=== PATIENT | male | born 1960 | race African-American/Black ===

== ENCOUNTER 2017-02-19 19:16 | Inpatient (IN) | payer OTHER ==
[~2017-02-19] VITALS: Ht 172.7 cm; Wt 105.2 kg
[2017-02-19] MEDS ORDERED: SODIUM CHLORIDE 0.9% 1000ML 1,000 ML IV STA ×2 (19:53)
[2017-02-19] MEDS ORDERED: GLYB5TAB8 PO (20:00)
[2017-02-19] MEDS ORDERED: PRLSR20 PO (20:00)
[2017-02-19] MEDS ORDERED: GLC/500 PO (20:00)
[2017-02-19] MEDS ORDERED: FERRTAB PO (20:00)
[2017-02-19] MEDS ORDERED: ALLO100T PO (20:00)
[2017-02-19] MEDS ORDERED: LISI-725 PO (20:00)
[2017-02-19] MEDS ORDERED: CALC250T2 PO (20:00)
--- NOTE | 2017-02-19 20:23 | DIAGNOSTIC IMAGING REPORT ---
CHEST ONE VIEW PORTABLE CLINICAL HISTORY: Weakness. COMPARISON STUDY: No previous studies for comparison. FINDINGS: Lung volumes are normal. There is no pneumothorax or pleural effusion. Cardiac size is normal. Mediastinal contours are normal. There is no evidence of pulmonary edema. IMPRESSION: No acute cardiopulmonary findings. Electronically signed by: Dawson Ramirez M.D. 02/19/2017 8:22 PM Dictated Date/Time: 02/19/2017 8:21 PM
[2017-02-19 21:14] LABS: BASO % 0.3 %; BASO ABS # 0.04 K/uL (0-0.2); COMPLETE YES; EOS % 1.5 %; HEMATOCRIT 32.3 % (42-52); IG% 0.4 %; LYMPH % 26.4 %; LYMPH ABS # 4.21 K/uL (1.2-3.4); MEAN CELL VOLUME 77.1 fL (80-100); MEAN CORPUSCULAR HEMOGLOBIN 26.5 pg (25-34); MEAN CORPUSCULAR HGB CONC 34.4 g/dl (32-36); MEAN PLATELET VOLUME 8.6 fL (7.4-10.4); MONO % 5.1 %; NEUT % 66.3 %; PLATELET COUNT 461 K/uL (130-400); RED BLOOD COUNT 4.19 M/uL (4.7-6.1); WHITE BLOOD COUNT 15.95 K/uL (4.8-10.8)
[2017-02-19 21:30] LABS: URINE APPEARANCE CLOUDY (CLEAR); URINE COLOR DK YELLOW; URINE EPITHELIAL CELL AUTO >30 /lpf (0-5); URINE NITRITE POS (NEG); URINE SPECIFIC GRAVITY 1.027 (1.000-1.030); UROBILINOGEN NEG (NEG)
[2017-02-19 21:32] LABS: ALT/SGPT 26 U/L (12-78); BLOOD UREA NITROGEN 27 mg/dl (7-18); BUN/CREATININE RATIO 12.6 (10-20); CALCIUM 8.8 mg/dl (8.5-10.1); CARBON DIOXIDE 23 mmol/L (21-32); CHLORIDE 100 mmol/L (98-107); GLUCOSE 183 mg/dl (70-99); MAGNESIUM 1.1 mg/dl (1.8-2.4); SODIUM 134 mmol/L (136-145)
[2017-02-19 21:33] LABS: MANUAL MICROSCOPIC REQUIRED? NO; REVIEW REQ? YES; URINE BILIRUBIN NEG (NEG)
[2017-02-19 21:36] LABS: PARTIAL THROMBOPLASTIN RATIO 1.2; PROTHROMBIN TIME (PATIENT) 10.6 SECONDS (9.0-12.0)
[2017-02-19 21:40] LABS: ALKALINE PHOSPHATASE 119 U/L (45-117); AST/SGOT 8 U/L (15-37); CKMB/CK RATIO 0.5 (0-3.0)
[2017-02-19] MEDS ORDERED: DAPTOmycin IV 500 MG in SODIUM CHLORIDE 0.9% 50ML 50 ML IV STA (22:14)
[2017-02-19] MEDS ORDERED: PIPERACILLIN/TAZOBACTAM 4.5 GM/100ML D5W IV STA (22:14)
[2017-02-19] MEDS ORDERED: SODIUM CHLORIDE 0.9% 1000ML 2,000 ML IV STA (22:14)
--- NOTE | 2017-02-19 22:59 | History and Physical ---
History & Physical Date & Time of Service: Feb 19, 2017 at 22:59 Chief Complaint: Dizziness Primary Care Physician: Jorje FRANCO History of Present Illness Source: patient 56 yo M a prisoner at [facility] Jorje -with past medical hx of Type 2 DM . HTN presented to ED with symptom of dizzy spell and lightheadedness in the ED -he was found to be hypotensive BP 92/59 ; tachycardic HR 128 , WBC 15 K , lactic acid level 2.1 , CANDACE with cr 2.2 ( baseline unknown -as per pt no known kidney disease ) pt denies of any symptom of fever or chills, no cough symptom , no abdominal discomfort, no diarrhea felt tired and weak with poor appetite past few days -otherwise not change form normal Cxray shows no cardiopulmonary disease UA positive for nitrite , leukocyte esterase pt denies of any urinary symptoms -no dysuria , has nocturia , and urinary frequency -mentions that has been chronic pt's BP improved after IV fluid bolus in ED , dizzy spell has improved no complain of chest pain or SOB , no orthopnea ,no weakness or paresthesia , no visual symptoms will be admitted to [facility] for Sepsis -possible source of infection -UTI Past Medical/Surgical History Medical Problems: (1) Diabetes Status: Chronic (2) Diverticulitis large intestine Status: Resolved (3) Hypertension Status: Chronic Surgical Problems: (1) History of colostomy reversal Status: Resolved (2) S/P colon resection Status: Resolved Social History Smoking Status: Never Smoker Allergies Coded Allergies: No Known Allergies (Unverified , 02/19/17) Home Medications Scheduled Allopurinol (Zyloprim), 100 MG PO DAILY Calcium Carbonate-Vitamin D (Oyst-Edin D), 1 TAB PO BID Ferrous Fumarate W/ Fa-Dss-B C (Nephron Fa), 1 TAB PO DAILY Glyburide (Micronase), 5 MG PO DAILY Lisinopril (Zestril), 20 MG PO DAILY Metformin Hcl (Glucophage), 500 MG PO BID Omeprazole (Prilosec), 20 MG PO DAILY Review of Systems Constitutional: + fatigue, + weakness Respiratory: No cough, No dyspnea at rest, No dyspnea on exertion, No hemoptysis, No problem reported, No shortness of breath, No sputum, No wheezing Cardiovascular: No PND, No chest pain, No claudication, No edema, No orthopnea , No palpitations, No problem reported Abdomen: No GI bleeding, No constipation, No diarrhea, No nausea, No pain, No problem reported, No vomiting Genitourinary - Male: + urinary frequency Endocrine: + fatigue Physical Exam Vital Signs Date Time Temp Pulse Resp B/P Pulse Ox O2 Delivery O2 Flow Rate FiO2 02/19/17 21:12 97 Room Air 02/19/17 21:05 115 18 119/62 95 Room Air 02/19/17 20:35 119 02/19/17 19:39 36.9 128 20 92/59 98 Room Air General Appearance: no apparent distress Head: normocephalic, atraumatic Eyes: normal inspection Neck: supple, no adenopathy, thyroid normal, no JVD, no carotid bruits, trachea midline Respiratory/Chest: chest non-tender, lungs clear, normal breath sounds, no respiratory distress, no accessory muscle use Cardiovascular: regular rate, rhythm, + tachycardia Abdomen/GI: normal bowel sounds, non tender, soft Extremities/Musculoskelatal: normal capillary refill, no pedal edema Neurologic/Psych: alert, normal mood/affect, oriented x 3 Skin: no rash Lymphatic: no adenopathy Diagnostics Laboratory Results Results Past 24 Hours Test 02/19/17 21:00 02/19/17 21:08 02/19/17 21:10 Range/Units White Blood Count 15.95 4.8-10.8 K/uL Red Blood Count 4.19 4.7-6.1 M/uL Hemoglobin 11.1 14.0-18.0 g/dL Hematocrit 32.3 42-52 % Mean Corpuscular Volume 77.1 80-100 fL Mean Corpuscular Hemoglobin 26.5 25-34 pg Mean Corpuscular Hemoglobin Concent 34.4 32-36 g/dl Platelet Count 461 130-400 K/uL Mean Platelet Volume 8.6 7.4-10.4 fL Neutrophils (%) (Auto) 66.3 % Lymphocytes (%) (Auto) 26.4 % Monocytes (%) (Auto) 5.1 % Eosinophils (%) (Auto) 1.5 % Basophils (%) (Auto) 0.3 % Neutrophils # (Auto) 10.59 1.4-6.5 K/uL Lymphocytes # (Auto) 4.21 1.2-3.4 K/uL Monocytes # (Auto) 0.81 0.11-0.59 K/uL Eosinophils # (Auto) 0.24 0-0.5 K/uL Basophils # (Auto) 0.04 0-0.2 K/uL RDW Standard Deviation 43.3 36.4-46.3 fL RDW Coefficient of Variation 15.3 11.5-14.5 % Immature Granulocyte % (Auto) 0.4 % Immature Granulocyte # (Auto) 0.06 0.00-0.02 K/uL Prothrombin Time 10.6 9.0-12.0 SECONDS Prothromb Time International Ratio 1.0 0.9-1.1 Activated Partial Thromboplast Time 32.0 21.0-31.0 SECONDS Partial Thromboplastin Ratio 1.2 Sodium Level 134 136-145 mmol/L Potassium Level 4.0 3.5-5.1 mmol/L Chloride Level 100 98-107 mmol/L Carbon Dioxide Level 23 21-32 mmol/L Anion Gap 11.0 3-11 mmol/L Blood Urea Nitrogen 27 7-18 mg/dl Creatinine 2.10 0.60-1.40 mg/dl Est Creatinine Clear Calc Drug Dose 46.0 ml/min Estimated GFR () 39.6 Estimated GFR (Non- 34.2 BUN/Creatinine Ratio 12.6 10-20 Random Glucose 183 70-99 mg/dl Calcium Level 8.8 8.5-10.1 mg/dl Magnesium Level 1.1 1.8-2.4 mg/dl Total Bilirubin 0.3 0.2-1 mg/dl Direct Bilirubin < 0.1 0-0.2 mg/dl Aspartate Amino Transf (AST/SGOT) 8 15-37 U/L Alanine Aminotransferase (ALT/SGPT) 26 12-78 U/L Alkaline Phosphatase 119 45-117 U/L Total Creatine Kinase 173 39-308 U/L Creatine Kinase MB 0.9 0.5-3.6 ng/ml Creatine Kinase MB Ratio 0.5 0-3.0 Troponin I < 0.015 0-0.045 ng/ml Pro-B-Type Natriuretic Peptide 22 0-900 pg/ml Total Protein 7.7 6.4-8.2 gm/dl Albumin 3.4 3.4-5.0 gm/dl Lipase 144 73-393 U/L Thyroid Stimulating Hormone (TSH) 2.990 0.300-4.500 uIu/ml Bedside Lactic Acid Venous 2.32 0.90-1.70 mmol/L Urine Color DK YELLOW Urine Appearance CLOUDY CLEAR Urine pH 5.0 4.5-7.5 Urine Specific [place] 1.027 1.000-1.030 Urine Protein 2+ NEG Urine Glucose (UA) NEG NEG Urine Ketones 1+ NEG Urine Occult Blood NEG NEG Urine Nitrite POS NEG Urine Bilirubin NEG NEG Urine Urobilinogen NEG NEG Urine Leukocyte Esterase TRACE NEG Urine WBC (Auto) 1-5 0-5 /hpf Urine RBC (Auto) 0-4 0-4 /hpf Urine Hyaline Casts (Auto) >30 0-5 /lpf Urine Epithelial Cells (Auto) >30 0-5 /lpf Urine Bacteria (Auto) 1+ NEG Urine Renal Epithelial Cells 0-5 /lpf Urine Pathogenic Casts 0 /lpf Microbiology Results 02/19/17 Blood Culture, Received Pending 02/19/17 Blood Culture, Received Pending 02/19/17 Urine Culture, Received Pending CXR normal Impression Assessment and Plan SEPSIS : meets criteria for sepsis -presented with tachycardia /hypotension / leukocytosis WBC 15 K /evidence of hypoperfusion lactic acid elevated > 2 possible source of infection -UTI started on Zosyn /Daptomycin as per sepsis protocol MRSA -screen ordered Daptomycin can be discontinued if MRSA screen negative blood and urine culture ordered in ED follow report ID consult requested HYPOTENSION: due to above given 2 L IV fluid bolus in ED BP improved 114 with adequate urination pt will be continued with IV fluid resuscitation repeat lactic acid ordered to assess adequate perfusion /correction of vol deficit hold antihypertensives -Lisinopril ordered for orthostatic vital monitor in tele TACHYCARDIA: reflex sinus tachycardia due to vol depletion /dehydration /sepsis cont vol resuscitation , Abx treatment for infection /sepsis monitor in Telel ACUTE KIDNEY INJURY : due to poor PO intake , dehydration ,sepsis cont IV fluids hold ACEI cont to follow PRP Nephrology eval requested HYPONATREMIA ; due to dehydration IVF with NSS monitor lytes LOW MG : corrected cont to follow lytes HTN : presented with Hypotension due to sepsis /dehydration ACEI on hold cont to monitor TYPE 2 DM hold Metformin/glyburide -acute illness /CANDACE insulin SSI ordered for Hb A1c in AM lab FULL CODE DVT PROPHYLAXIS : sub q heparin DISPOSITION : return to [facility] when medically stable Level of Care Telemetry Resuscitation Status FULL RESUSCITATION VTE Prophylaxis VTE Risk Assessment Done? Y/N: Yes Risk Level: Low Given or contraindicated: JANAE Woo's Note In my clinical judgment this beneficiary meets acute admission criteria, established by [facility], that includes being hospitalized through two midnights.
[2017-02-19] MEDS ORDERED: POLYETHYLENE (MIRALAX) 17 GM PACK PO PRN (23:00)
[2017-02-19] MEDS ORDERED: GLUCAGON FOR INJ 1 MG VIAL SQ PRN (23:00)
[2017-02-19] MEDS ORDERED: DEXTROSE 50% 50 ML SYR IV PRN (23:00)
[2017-02-19] MEDS ORDERED: GLUCOSE 40% GEL 15 GM TUBE PO PRN (23:00)
[2017-02-19] MEDS ORDERED: MAGNESIUM HYDROXIDE SUSP 30 ML UDC PO PRN (23:00)
[2017-02-19] MEDS ORDERED: ALUMINUM/MAGNESIUM/SIMETH (MAALOX MAX) 30 ML UDC PO PRN (23:00)
[2017-02-19] MEDS ORDERED: ONDANSETRON INJ 2 MG/ML 2 ML VIAL IV PRN (23:00)
[2017-02-19] MEDS ORDERED: GLUCOSE 10 TABS/TUBE PO PRN (23:00)
[2017-02-19] MEDS ORDERED: ZOLPIDEM TARTRATE 5 MG TAB PO PRN (23:00)
[2017-02-19] MEDS: MAGNESIUM SULFATE 1GM / D5W 1 GM in PREMIXED IN D5W 100 ML IV SCH ×2 (23:47→23:56)
[2017-02-20] VITALS (12 sets, daily range): BP systolic 102–125; BP diastolic 49–78; PULSE 89–108; TEMP 36.6–37; O2SAT 96–99; Ht 172.7 cm; Wt 105.2 kg
[2017-02-20] MEDS ORDERED: DAPTOMYCIN CONSULT ACTIVE PRN ×2 (00:03)
[2017-02-20] MEDS ORDERED: PIPERACILL/TAZOBAC CONSULT ACTIVE PRN (00:15)
[2017-02-20] MEDS: MAGNESIUM SULFATE 1GM / D5W 1 GM in PREMIXED IN D5W 100 ML IV SCH ×3 (00:43→02:56)
[2017-02-20] MEDS: SODIUM CHLORIDE 0.9% 1000ML 1,000 ML IV SCH ×4 (00:44→16:56)
--- NOTE | 2017-02-20 01:22 | EMERGENCY ROOM VISIT NOTE ---
History Report prepared by Matt: Marilu Amin Under the Supervision of: Dr. Leonel Olivera M.D. First contact with patient: 19:53 Chief Complaint: DIZZY Stated Complaint: DIZZINESS History of Present Illness The patient is a 56 year old male who presents to the Emergency Room from [facility] with complaints of an episode of lightheadedness that occurred this evening. The patient states that he was working in the kitchen when his symptoms began. He went to the [facility] at that time and his blood pressure was low, so they recommended that he be brought to the emergency room. Currently , he is feeling normal and does not have any complaints. His blood pressure typically runs normal to slightly high. He is medicated for hypertension and has not taken any extra doses recently. Over the past few days, he has been feeling well. Past medical history also includes diabetes. Pt denies LOC, headache, fevers, chills, diaphoresis, visual changes, neck pain, chest pain, breathing difficulties, nausea, vomiting, abdominal pain, back pain, melena, hematochezia, urinary symptoms, numbness, weakness, lymphadenopathy, rash, or other complaints. Source of History: patient Onset: this evening Position: other (global) Quality: other (lightheadedness) Timing: other (episode) Review of Systems See HPI for pertinent positives and negatives. A total of ten systems were reviewed and were otherwise negative. Past Medical & Surgical Medical Problems: (1) Diabetes (2) Diverticulitis large intestine (3) Hypertension (4) Sepsis Surgical Problems: (1) History of colostomy reversal (2) S/P colon resection Family History No pertinent family history stated. Social History Smoking Status: Never Smoker Housing Status: other ([facility]) Current/Historical Medications Scheduled Allopurinol (Zyloprim), 100 MG PO DAILY Calcium Carbonate-Vitamin D (Oyst-Edin D), 1 TAB PO BID Ferrous Fumarate W/ Fa-Dss-B C (Nephron Fa), 1 TAB PO DAILY Glyburide (Micronase), 5 MG PO DAILY Lisinopril (Zestril), 20 MG PO DAILY Metformin Hcl (Glucophage), 500 MG PO BID Omeprazole (Prilosec), 20 MG PO DAILY Allergies Coded Allergies: No Known Allergies (Unverified , 02/19/17) Physical Exam Vital Signs Date Time Temp Pulse Resp B/P Pulse Ox O2 Delivery O2 Flow Rate FiO2 02/19/17 22:30 102 122/69 99 Room Air 02/19/17 21:12 97 Room Air 02/19/17 21:05 115 18 119/62 95 Room Air 02/19/17 20:35 119 02/19/17 19:39 36.9 128 20 92/59 98 Room Air Physical Exam GENERAL: Awake, alert, well-appearing, in no distress HENT: Normocephalic, atraumatic. Oropharynx unremarkable. EYES: Normal conjunctiva. Sclera non-icteric. NECK: Supple. No nuchal rigidity. FROM. No JVD. RESPIRATORY: Clear to auscultation. CARDIAC: Tachycardic rate, normal rhythm. Extremities warm and well perfused. Pulses equal. ABDOMEN: Soft, non-distended. No tenderness to palpation. No rebound or guarding. No masses. RECTAL: Deferred. MUSCULOSKELETAL: Chest examination reveals no tenderness. The back is symmetrical on inspection without obvious abnormality. There is no CVA tenderness to palpation. No joint edema. LOWER EXTREMITIES: Calves are equal size bilaterally and non-tender. No edema. No discoloration. NEURO: Normal sensorium. No sensory or motor deficits noted. SKIN: No rash or jaundice noted. Medical Decision & Procedures ER Provider Diagnostic Interpretation: X ray results as stated below per my interpretation and radiologist interpretation. Other radiology results as stated below per my review and radiologist interpretation CHEST ONE VIEW PORTABLE CLINICAL HISTORY: Weakness. COMPARISON STUDY: No previous studies for comparison. FINDINGS: Lung volumes are normal. There is no pneumothorax or pleural effusion. Cardiac size is normal. Mediastinal contours are normal. There is no evidence of pulmonary edema. IMPRESSION: No acute cardiopulmonary findings. Electronically signed by: Dawson Ramirez M.D. 02/19/2017 8:22 PM Dictated Date/Time: 02/19/2017 8:21 PM Laboratory Results 02/19/17 21:00 Red Blood Count 4.19, Mean Corpuscular Volume 77.1, Mean Corpuscular Hemoglobin 26.5, Mean Corpuscular Hemoglobin Concent 34.4, Mean Platelet Volume 8.6, Neutrophils (%) (Auto) 66.3, Lymphocytes (%) (Auto) 26.4, Monocytes (%) (Auto) 5.1, Eosinophils (%) (Auto) 1.5, Basophils (%) (Auto) 0.3, Neutrophils # (Auto) 10.59, Lymphocytes # (Auto) 4.21, Monocytes # (Auto) 0.81, Eosinophils # (Auto) 0.24, Basophils # (Auto) 0.04 Test 02/19/17 21:00 02/19/17 21:08 02/19/17 21:10 White Blood Count 15.95 K/uL (4.8-10.8) Red Blood Count 4.19 M/uL (4.7-6.1) Hemoglobin 11.1 g/dL (14.0-18.0) Hematocrit 32.3 % (42-52) Mean Corpuscular Volume 77.1 fL (80-100) Mean Corpuscular Hemoglobin 26.5 pg (25-34) Mean Corpuscular Hemoglobin Concent 34.4 g/dl (32-36) Platelet Count 461 K/uL (130-400) Mean Platelet Volume 8.6 fL (7.4-10.4) Neutrophils (%) (Auto) 66.3 % Lymphocytes (%) (Auto) 26.4 % Monocytes (%) (Auto) 5.1 % Eosinophils (%) (Auto) 1.5 % Basophils (%) (Auto) 0.3 % Neutrophils # (Auto) 10.59 K/uL (1.4-6.5) Lymphocytes # (Auto) 4.21 K/uL (1.2-3.4) Monocytes # (Auto) 0.81 K/uL (0.11-0.59) Eosinophils # (Auto) 0.24 K/uL (0-0.5) Basophils # (Auto) 0.04 K/uL (0-0.2) RDW Standard Deviation 43.3 fL (36.4-46.3) RDW Coefficient of Variation 15.3 % (11.5-14.5) Immature Granulocyte % (Auto) 0.4 % Immature Granulocyte # (Auto) 0.06 K/uL (0.00-0.02) Prothrombin Time 10.6 SECONDS (9.0-12.0) Prothromb Time International Ratio 1.0 (0.9-1.1) Activated Partial Thromboplast Time 32.0 SECONDS (21.0-31.0) Partial Thromboplastin Ratio 1.2 Est Creatinine Clear Calc Drug Dose 46.0 ml/min Total Bilirubin 0.3 mg/dl (0.2-1) Direct Bilirubin < 0.1 mg/dl (0-0.2) Aspartate Amino Transf (AST/SGOT) 8 U/L (15-37) Alanine Aminotransferase (ALT/SGPT) 26 U/L (12-78) Alkaline Phosphatase 119 U/L (45-117) Total Creatine Kinase 173 U/L (39-308) Creatine Kinase MB 0.9 ng/ml (0.5-3.6) Creatine Kinase MB Ratio 0.5 (0-3.0) Troponin I < 0.015 ng/ml (0-0.045) Pro-B-Type Natriuretic Peptide 22 pg/ml (0-900) Total Protein 7.7 gm/dl (6.4-8.2) Albumin 3.4 gm/dl (3.4-5.0) Lipase 144 U/L (73-393) Thyroid Stimulating Hormone (TSH) 2.990 uIu/ml (0.300-4.500) Bedside Lactic Acid Venous 2.32 mmol/L (0.90-1.70) Urine Color DK YELLOW Urine Appearance CLOUDY (CLEAR) Urine pH 5.0 (4.5-7.5) Urine Specific [place] 1.027 (1.000-1.030) Urine Protein 2+ (NEG) Urine Glucose (UA) NEG (NEG) Urine Ketones 1+ (NEG) Urine Occult Blood NEG (NEG) Urine Nitrite POS (NEG) Urine Bilirubin NEG (NEG) Urine Urobilinogen NEG (NEG) Urine Leukocyte Esterase TRACE (NEG) Urine WBC (Auto) 1-5 /hpf (0-5) Urine RBC (Auto) 0-4 /hpf (0-4) Urine Hyaline Casts (Auto) >30 /lpf (0-5) Urine Epithelial Cells (Auto) >30 /lpf (0-5) Urine Bacteria (Auto) 1+ (NEG) Urine Renal Epithelial Cells /lpf (0-5) Urine Pathogenic Casts /lpf (0) Laboratory results reviewed by me Medications Administered Medications (Trade) Dose Ordered Sig/Rodolfo Route Start Time Stop Time Status Last Admin Dose Admin Sodium Chloride 1,000 ml @ 125 mls/hr Q8H STAT IV 02/19/17 19:53 02/19/17 23:59 DC 02/19/17 21:12 125 MLS/HR Sodium Chloride 1,000 ml @ 999 mls/hr Q1H1M STAT IV 02/19/17 19:53 02/19/17 20:53 DC 02/19/17 21:12 999 MLS/HR Sodium Chloride (Nss 1000ml) 2,000 ml @ 999 mls/hr Q2H1M STAT IV 02/19/17 22:14 02/19/17 23:59 DC 02/19/17 22:19 999 MLS/HR Piperacillin Sod/ Tazobactam Sod 4.5 gm 4.5 gm NOW STAT IV 02/19/17 22:14 02/19/17 22:16 DC 02/19/17 22:50 4.5 GM Daptomycin 500 mg/ Sodium Chloride 60 ml @ 100 mls/hr NOW STAT IV 02/19/17 22:14 02/19/17 22:49 DC 02/19/17 23:47 100 MLS/HR Magnesium Sulfate/ Prmx (Magnesium Sulfate/Premixed D5W) 100 ml @ 100 mls/hr Q1H IV 02/19/17 22:56 02/20/17 00:55 DC 02/20/17 00:43 100 MLS/HR ECG Indication: other (lightheadedness) Rate (beats per minute): 117 Rhythm: sinus tachycardia Findings: no acute ischemic change, no ectopy ED Course 1952: Ordered NSS 1000 ml @ 999 mls/hr IV, NSS 1000 ml @ 125 mls/hr IV. 1999: The patient was evaluated in room C8. A complete history and physical exam was performed. 4: Ordered Daptomycin 500 mg/NSS 60 ml @ 100 mls/hr IV, Zosyn 4.5 gm IV. 2223: Upon reexamination, the patient was resting comfortably. I discussed the test results and treatment plan with the patient. The patient will be evaluated for further management. 2246: I [facility]. The patient will be evaluated for further management. Medical Decision Triage Nursing notes reviewed. The patient's presentation and history were concerning for dizziness and low blood pressure. Etiologies such as metabolic, infection, hypo/hyperglycemia, electrolyte abnormalities, cardiac sources, intracerebral event, toxicologic, neurologic, as well as others were entertained. The patient had really minimal symptoms on review. His blood pressure was low when he was tachycardic. He was hydrated and blood work was obtained. He was found have a 15,000 white count, mildly elevated lactate, and elevated creatinine level. His urinalysis was concerning for infection. The patient was given additional 2 L of fluid and broad-spectrum antibiotics due to some concerns for Sirs/sepsis. Clinically the patient looks well but will need further treatment in the hospital. He had received Zosyn and daptomycin. Consultation was made with internal medicine. Chest imaging was unremarkable. He was evaluated in the Emergency Room by medicine for further management. The chart was completed utilizing [employer] Speech voice recognition software. Grammatical errors, random word insertions, pronoun errors, and incomplete sentences are an occasional consequence of this system due to software limitations, ambient noise, and hardware issues. Any formal questions or concerns about the content, text, or information contained within the body of this dictation should be directly addressed to the physician for clarification. Consults Time Called: 2239 Consulting Physician: Dr. William Rizvi Hospitalist Returned Call: [phone] I discussed the case with her. The patient will be evaluated for further management. Impression Primary Impression: SIRS (systemic inflammatory response syndrome) Additional Impressions: Hypotension UTI (urinary tract infection) Scribe Attestation The scribe's documentation has been prepared under my direction and personally reviewed by me in its entirety. I confirm that the note above accurately reflects all work, treatment, procedures, and medical decision making performed by me. Departure Information Dispostion Being Evaluated By Hospitalist Referrals Jorje FRANCO (PCP) Patient Instructions My [facility] Problem Qualifiers
[2017-02-20 01:41] LABS: BUN/CREATININE RATIO 13.7 (10-20); CALCIUM 7.7 mg/dl (8.5-10.1); CREATININE 1.6 mg/dl (0.60-1.40); MAGNESIUM 1.4 mg/dl (1.8-2.4); POTASSIUM 3.7 mmol/L (3.5-5.1)
[2017-02-20] MEDS: PIPERACILL/TAZOBAC IV 4.5 GM in DEXTROSE 5% 100ML 100 ML IV SCH ×4 (04:00→20:35)
--- NOTE | 2017-02-20 05:10 | Progress Note ---
Progress Note Post Crystalloid Evaluation Date: Feb 20, 2017 Time: 04:00 Subjective pt re evaluated for sepsis feeling well , no complain of dizzy spell or lightheadedness BP remains stable Physical Exam Vital Signs: Vital Signs Date Time Temp Pulse Resp B/P Pulse Ox O2 Delivery O2 Flow Rate FiO2 02/20/17 03:10 36.6 93 18 102/49 97 Room Air Lungs: chest non-tender, lungs clear, normal breath sounds, no respiratory distress, no accessory muscle use Heart: regular rate, rhythm, normal peripheral pulses Peripheral Pulse: Normal Capillary Refill: Normal (less than 2 seconds) Assessment & Plan presented with Sepsis due to Possible UTI was hypotensive , tachycardic , elevated lactic acid in acute renal failure improved with IV hydration repeat Lactic acid level at 1200 AM normalized cr improved 2-> 1.6 vitals remains stable will decrease IVF to 150 ml /hr cont broad spectrum ABx till blood and urine culture available
[2017-02-20 06:04] LABS: ESTIMATED AVERAGE GLUCOSE 235 mg/dl; HA1C FLAG Normal (Normal)
[2017-02-20 06:30] LABS: BUN/CREATININE RATIO 14.4 (10-20); CREATININE 1.4 mg/dl (0.60-1.40); MAGNESIUM 2.1 mg/dl (1.8-2.4)
[2017-02-20 07:26] LABS: MEAN CELL VOLUME 77.1 fL (80-100); MEAN CORPUSCULAR HGB CONC 33.7 g/dl (32-36); MEAN PLATELET VOLUME 8.7 fL (7.4-10.4); PLATELET COUNT 397 K/uL (130-400); RED BLOOD COUNT 3.89 M/uL (4.7-6.1); WHITE BLOOD COUNT 12.41 K/uL (4.8-10.8)
[2017-02-20] MEDS: INSULIN HUMAN REGULAR SC SCH ×4 (08:33→21:00)
[2017-02-20] MEDS: HEPARIN SOD 5000 UNIT/0.5 ML CARP SQ SCH ×3 (08:34→22:11)
[2017-02-20] MEDS: PANTOprazole SOD 40 MG TAB PO SCH (08:34)
[2017-02-20] MEDS: CALCIUM 600MG + VIT D 400 IU TAB PO SCH ×2 (08:34→20:45)
[2017-02-20] MEDS: ALLOPURINOL 100 MG TAB PO SCH (08:34)
--- NOTE | 2017-02-20 09:44 | Medical Consult ---
Consultation Date of Consultation: Feb 20, 2017. Attending Physician: Vaughn Moraes M.D. Reason for Consultation: Sepsis History of Present Illness Patient is a 56-year-old diabetic, incarcerated male from [facility] who presented to the emergency department with complaints of dizziness and lightheadedness which was severe a few hours prior to admission. The patient was working in the kitchen when his symptoms began, and he was evaluated at the [facility]. He was noted that his blood pressure was very low, so he was sent the emergency room for further evaluation. Upon presentation to the emergency department, the patient's blood pressure was noted to be 92/59. He was tachycardic at 128 BPM as well. His white blood cell count was 15.95. His creatinine was noted to be elevated at 2.1. Blood in urine cultures were drawn and are currently pending. His urinalysis showed trace leukocyte esterase and positive nitrite, but only 1-5 white blood cells. He was started empirically on IV Zosyn and daptomycin. He states that he overall is feeling much improved. He otherwise denies fever, sweats, chills, headache, shortness of breath, chest pains, cough, nausea, vomiting, diarrhea, urinary changes, or edema in his bilateral lower extremities. The patient states that he has never had dizzy spells in past like he had prior to admission. His appetite has been good, and he has not lost any weight recently. He did have a chest x-ray on admission as well which showed no acute findings. Past Medical/Surgical History Medical Problems: (1) Diabetes (2) Diverticulitis large intestine (3) Hypertension (4) Sepsis Surgical Problems: (1) History of colostomy reversal (2) S/P colon resection Medical Problems: (1) Hypotension Status: Acute (2) SIRS (systemic inflammatory response syndrome) Status: Acute (3) UTI (urinary tract infection) Status: Acute Family History Noncontributory Social History Smoking Status: Never Smoker Housing Status: other ([facility] Allergies Coded Allergies: No Known Allergies (Unverified , 02/19/17) Home Medications Reported Home Medications Medications Dose Route/Sig Max Daily Dose Days Date Category Nephron Fa (Ferrous Fumarate W/ Fa-Dss-B C) 1 Tab Tab 1 Tab PO DAILY 02/19/17 Reported Zestril (Lisinopril) 20 Mg Tab 20 Mg PO DAILY 02/19/17 Reported Micronase (Glyburide) 5 Mg Tab 5 Mg PO DAILY 02/19/17 Reported Oyst-Edin D (Calcium Carbonate-Vitamin D) 1 Tab Tab 1 Tab PO BID 02/19/17 Reported Prilosec (Omeprazole) 20 Mg Capcr 20 Mg PO DAILY 02/19/17 Reported Glucophage (Metformin Hcl) 500 Mg Tab 500 Mg PO BID 02/19/17 Reported Zyloprim (Allopurinol) 100 Mg Tab 100 Mg PO DAILY 02/19/17 Reported Current Inpatient Medications Current Inpatient Medications Medications (Trade) Dose Ordered Sig/Rodolfo Route Start Time Stop Time Status Last Admin Dose Admin Sodium Chloride (Nss 1000ml) 1,000 ml @ 150 mls/hr Q6H40M IV 02/19/17 23:59 03/22/17 23:58 02/20/17 05:29 150 MLS/HR Allopurinol (Zyloprim Tab) 100 mg DAILY PO 02/20/17 09:00 03/22/17 08:59 02/20/17 08:34 100 MG Calcium/Vitamin D (Caltrate Plus Tab) 1 tab BID PO 02/20/17 09:00 03/22/17 08:59 02/20/17 08:34 1 TAB Miscellaneous Information (Order Awaiting Action) 1 ea QS N/A 02/20/17 08:00 03/22/17 07:59 Pantoprazole Sodium (Protonix Tab) 40 mg DAILY PO 02/20/17 09:00 03/22/17 08:59 02/20/17 08:34 40 MG Acetaminophen (Tylenol Tab) 650 mg Q4H PRN PO 02/19/17 23:00 03/21/17 22:59 Al Hydrox/Mg Hydrox/Simethicone (Maalox Max Susp) 15 ml Q4H PRN PO 02/19/17 23:00 03/21/17 22:59 Magnesium Hydroxide (Milk Of Magnesia Susp) 30 ml Q12H PRN PO 02/19/17 23:00 03/21/17 22:59 Zolpidem Tartrate (Ambien Tab) 5 mg HSZ PRN PO 02/19/17 23:00 03/21/17 22:59 Ondansetron HCl (Zofran Inj) 4 mg Q6H PRN IV 02/19/17 23:00 03/21/17 22:59 Polyethylene (Miralax Powder Packet) 17 gm DAILY PRN PO 02/19/17 23:00 03/21/17 22:59 Insulin Human Regular (novoLIN-R) SLIDING SCALE IF C... ACHS SC 02/20/17 07:00 03/22/17 06:59 02/20/17 08:33 4 UNITS Glucose (Glucose 40% Gel) 15-30 GRAMS 15 GRAMS... UD PRN PO 02/19/17 23:00 03/21/17 22:59 Glucose (Glucose Chew Tab) 4-8 Tablets 4 Tabl... UD PRN PO 02/19/17 23:00 03/21/17 22:59 Dextrose (Dextrose 50% 50ML Syringe) 25-50ML OF 50% DW IV FOR... UD PRN IV 02/19/17 23:00 03/21/17 22:59 Glucagon 1 mg 1 mg UD PRN SQ 02/19/17 23:00 03/21/17 22:59 Piperacillin Sod/ Tazobactam Sod 4.5 gm/Dextrose 120 ml @ 28 mls/hr Q8H IV 02/20/17 04:00 03/02/17 03:59 02/20/17 04:00 28 MLS/HR Daptomycin/Sodium Chloride (Cubicin IV/Nss 50ml) 62.5 ml @ 100 mls/hr Q24H IV 02/20/17 23:00 02/28/17 23:38 Daptomycin (Consult) 1 ea DAILY PRN N/A 02/20/17 00:03 03/22/17 00:02 Piperacillin Sod/ Tazobactam Sod (Consult) 1 ea UD PRN N/A 02/20/17 00:15 03/22/17 00:14 Heparin Sodium (Porcine) (Heparin Sq 5000 Unit/0.5ml) 5,000 unit Q8 SQ 02/20/17 07:00 03/22/17 06:59 02/20/17 08:34 5,000 UNIT Review of Systems Constitutional: + fatigue, No chills, No fever, No sweats Eyes: No worsening of vision ENT: No hearing loss, No sore throat, No trouble swallowing Respiratory: No cough, No shortness of breath, No sputum, No wheezing Cardiovascular: No chest pain, No palpitations Abdomen: No diarrhea, No nausea, No pain, No vomiting Musculoskeletal: No joint pain, No swelling Genitourinary - Male: No dysuria, No hematuria Neurologic: + problem reported (dizzy, lightheaded) Integumentary: No color change, No itch, No new/changing skin lesions, No rash Physical Exam Date Time Temp Pulse Resp B/P Pulse Ox O2 Delivery O2 Flow Rate FiO2 02/20/17 08:09 36.7 94 18 110/59 97 Room Air 02/20/17 04:00 97 Room Air 02/20/17 03:10 36.6 93 18 102/49 97 Room Air 02/20/17 00:01 36.6 108 18 113/64 99 Room Air 02/19/17 23:17 103 132/77 02/19/17 22:30 102 122/69 99 Room Air 02/19/17 21:12 97 Room Air 02/19/17 21:05 115 18 119/62 95 Room Air 02/19/17 20:35 119 02/19/17 19:39 36.9 128 20 92/59 98 Room Air General Appearance: WD/WN, no apparent distress Head: normocephalic, atraumatic Eyes: normal inspection, sclerae normal ENT: hearing grossly normal Neck: supple, trachea midline Respiratory/Chest: chest non-tender, lungs clear, normal breath sounds, no respiratory distress, no accessory muscle use Cardiovascular: regular rate, rhythm, no murmur Abdomen/GI: normal bowel sounds, non tender, soft Back: normal inspection Extremities/Musculoskelatal: normal inspection, no pedal edema Neurologic/Psych: alert, normal mood/affect, oriented x 3 Skin: normal color, warm/dry, no rash Laboratory Results CHEST ONE VIEW PORTABLE CLINICAL HISTORY: Weakness. COMPARISON STUDY: No previous studies for comparison. FINDINGS: Lung volumes are normal. There is no pneumothorax or pleural effusion. Cardiac size is normal. Mediastinal contours are normal. There is no evidence of pulmonary edema. IMPRESSION: No acute cardiopulmonary findings. Item Value Date Time MRSA DNA Surveillance Screen - Final Complete 02/19/17 2343 Nasal Specimen Negative for MRSA by DNA Probe Urine Culture Received 02/19/17 2110 Urine , Clean Catch Pending Blood Culture Received 02/19/17 2100 Blood Pending Blood Culture Received 02/19/171 Blood Pending Last 24 Hours Test 02/19/17 21:00 02/19/17 21:08 02/19/17 21:10 02/20/17 00:47 White Blood Count 15.95 K/uL Red Blood Count 4.19 M/uL Hemoglobin 11.1 g/dL Hematocrit 32.3 % Mean Corpuscular Volume 77.1 fL Mean Corpuscular Hemoglobin 26.5 pg Mean Corpuscular Hemoglobin Concent 34.4 g/dl Platelet Count 461 K/uL Mean Platelet Volume 8.6 fL Neutrophils (%) (Auto) 66.3 % Lymphocytes (%) (Auto) 26.4 % Monocytes (%) (Auto) 5.1 % Eosinophils (%) (Auto) 1.5 % Basophils (%) (Auto) 0.3 % Neutrophils # (Auto) 10.59 K/uL Lymphocytes # (Auto) 4.21 K/uL Monocytes # (Auto) 0.81 K/uL Eosinophils # (Auto) 0.24 K/uL Basophils # (Auto) 0.04 K/uL RDW Standard Deviation 43.3 fL RDW Coefficient of Variation 15.3 % Immature Granulocyte % (Auto) 0.4 % Immature Granulocyte # (Auto) 0.06 K/uL Prothrombin Time 10.6 SECONDS Prothromb Time International Ratio 1.0 Activated Partial Thromboplast Time 32.0 SECONDS Partial Thromboplastin Ratio 1.2 Sodium Level 134 mmol/L 140 mmol/L Potassium Level 4.0 mmol/L 3.7 mmol/L Chloride Level 100 mmol/L 108 mmol/L Carbon Dioxide Level 23 mmol/L 22 mmol/L Anion Gap 11.0 mmol/L 10.0 mmol/L Blood Urea Nitrogen 27 mg/dl 22 mg/dl Creatinine 2.10 mg/dl 1.60 mg/dl Est Creatinine Clear Calc Drug Dose 46.0 ml/min 60.8 ml/min Estimated GFR () 39.6 55.0 Estimated GFR (Non- 34.2 47.5 BUN/Creatinine Ratio 12.6 13.7 Random Glucose 183 mg/dl 173 mg/dl Calcium Level 8.8 mg/dl 7.7 mg/dl Magnesium Level 1.1 mg/dl 1.4 mg/dl Total Bilirubin 0.3 mg/dl Direct Bilirubin < 0.1 mg/dl Aspartate Amino Transf (AST/SGOT) 8 U/L Alanine Aminotransferase (ALT/SGPT) 26 U/L Alkaline Phosphatase 119 U/L Total Creatine Kinase 173 U/L Creatine Kinase MB 0.9 ng/ml Creatine Kinase MB Ratio 0.5 Troponin I < 0.015 ng/ml Pro-B-Type Natriuretic Peptide 22 pg/ml Total Protein 7.7 gm/dl Albumin 3.4 gm/dl Lipase 144 U/L Thyroid Stimulating Hormone (TSH) 2.990 uIu/ml Bedside Lactic Acid Venous 2.32 mmol/L Urine Color DK YELLOW Urine Appearance CLOUDY Urine pH 5.0 Urine Specific [place] 1.027 Urine Protein 2+ Urine Glucose (UA) NEG Urine Ketones 1+ Urine Occult Blood NEG Urine Nitrite POS Urine Bilirubin NEG Urine Urobilinogen NEG Urine Leukocyte Esterase TRACE Urine WBC (Auto) 1-5 /hpf Urine RBC (Auto) 0-4 /hpf Urine Hyaline Casts (Auto) >30 /lpf Urine Epithelial Cells (Auto) >30 /lpf Urine Bacteria (Auto) 1+ Urine Renal Epithelial Cells /lpf Urine Pathogenic Casts /lpf Lactic Acid Level 1.6 mmol/L Test 02/20/17 05:39 02/20/17 06:43 White Blood Count 12.41 K/uL Red Blood Count 3.89 M/uL Hemoglobin 10.1 g/dL Hematocrit 30.0 % Mean Corpuscular Volume 77.1 fL Mean Corpuscular Hemoglobin 26.0 pg Mean Corpuscular Hemoglobin Concent 33.7 g/dl RDW Standard Deviation 44.2 fL RDW Coefficient of Variation 15.7 % Platelet Count 397 K/uL Mean Platelet Volume 8.7 fL Sodium Level 138 mmol/L Potassium Level 4.0 mmol/L Chloride Level 105 mmol/L Carbon Dioxide Level 24 mmol/L Anion Gap 9.0 mmol/L Blood Urea Nitrogen 20 mg/dl Creatinine 1.40 mg/dl Est Creatinine Clear Calc Drug Dose 69.5 ml/min Estimated GFR () 64.6 Estimated GFR (Non- 55.8 BUN/Creatinine Ratio 14.4 Random Glucose 183 mg/dl Estimated Average Glucose 235 mg/dl Hemoglobin A1c 9.8 % Lactic Acid Level 1.5 mmol/L Calcium Level 8.0 mg/dl Magnesium Level 2.1 mg/dl Bedside Glucose 176 mg/dl Assessment & Plan Patient with lightheadedness, dizziness, lactic acidosis and leukocytosis on admission. Urinalysis showed positive nitrite and trace leukocyte esterase but no WBC's. Blood and urine cultures are pending. Patient is on IV Daptomycin and Zosyn. Will continue broad spectrum abx pending culture results. We will follow. PROVIDER ADDENDUM: Pt. examined and reviewed with Ms. Delaney. Agree with above assessment.
--- NOTE | 2017-02-20 13:47 | Progress Note ---
Internal Med Progress Note Date of Service: Feb 20, 2017. Provider Documentation: SUBJECTIVE: The patient was seen and examined Fels a lot better No more dizziness,No fever,chills OBJECTIVE: Vital Signs-as noted below Exam: General-no scute distress Eyes-normal ENT-normal Neck-supple Lungs-Clear to auscultate bilaterally Heart-Regular,no murmur appreciated Abdomen-Benign,no masses,bowel sound present Extremities-No edema Neuro-AAOx3 Lab data as noted below. ASSESSMENT & PLAN: SEPSIS : Likely secondary to UTI -met criteria for sepsis -presented with tachycardia /hypotension /leukocytosis WBC 15 K /evidence of hypoperfusion lactic acid elevated > 2 -started on Zosyn /Daptomycin as per sepsis protocol -MRSA -screen -negative -blood and urine culture ordered in ED follow report -ID consult requested-appreciate input -clinically better today HYPOTENSION:TACHYCARDIA: Secondary to Sepsis Got IV fluid boluses BP is improved Hold antihypertensives -Lisinopril ACUTE KIDNEY INJURY : Secondary to dehydration ,sepsis Cont IV fluids Hold ACEI Renal Function is improving Electrolytes Imbalance Supplement : Recheck HTN : Presented with Hypotension due to sepsis /dehydration ACEI on hold di to low BP and ARF Will restart when needed TYPE 2 DM hold Metformin/glyburide -acute illness /CANDACE insulin SSI ordered for Hb A1c in AM lab--9.8 FULL CODE DVT PROPHYLAXIS : sub q heparin DISPOSITION : return to [facility] when medically stable Vital Signs: Date Time Temp Pulse Resp B/P Pulse Ox O2 Delivery O2 Flow Rate FiO2 02/20/17 12:00 97 Room Air 02/20/17 11:12 37.0 89 18 103/59 98 Room Air 02/20/17 08:09 36.7 94 18 110/59 97 Room Air 02/20/17 08:00 97 Room Air 02/20/17 04:00 97 Room Air 02/20/17 03:10 36.6 93 18 102/49 97 Room Air 02/20/17 00:01 36.6 108 18 113/64 99 Room Air 02/19/17 23:17 103 132/77 02/19/17 22:30 102 122/69 99 Room Air 02/19/17 21:12 97 Room Air 02/19/17 21:05 115 18 119/62 95 Room Air 02/19/17 20:35 119 4/5/17 19:39 36.9 128 20 92/59 98 Room Air Lab Results: Results Past 24 Hours Test 02/19/17 21:00 02/19/17 21:08 02/19/17 21:10 02/20/17 00:47 Range/Units White Blood Count 15.95 4.8-10.8 K/uL Red Blood Count 4.19 4.7-6.1 M/uL Hemoglobin 11.1 14.0-18.0 g/dL Hematocrit 32.3 42-52 % Mean Corpuscular Volume 77.1 80-100 fL Mean Corpuscular Hemoglobin 26.5 25-34 pg Mean Corpuscular Hemoglobin Concent 34.4 32-36 g/dl Platelet Count 461 130-400 K/uL Mean Platelet Volume 8.6 7.4-10.4 fL Neutrophils (%) (Auto) 66.3 % Lymphocytes (%) (Auto) 26.4 % Monocytes (%) (Auto) 5.1 % Eosinophils (%) (Auto) 1.5 % Basophils (%) (Auto) 0.3 % Neutrophils # (Auto) 10.59 1.4-6.5 K/uL Lymphocytes # (Auto) 4.21 1.2-3.4 K/uL Monocytes # (Auto) 0.81 0.11-0.59 K/uL Eosinophils # (Auto) 0.24 0-0.5 K/uL Basophils # (Auto) 0.04 0-0.2 K/uL RDW Standard Deviation 43.3 36.4-46.3 fL RDW Coefficient of Variation 15.3 11.5-14.5 % Immature Granulocyte % (Auto) 0.4 % Immature Granulocyte # (Auto) 0.06 0.00-0.02 K/uL Prothrombin Time 10.6 9.0-12.0 SECONDS Prothromb Time International Ratio 1.0 0.9-1.1 Activated Partial Thromboplast Time 32.0 21.0-31.0 SECONDS Partial Thromboplastin Ratio 1.2 Sodium Level 134 140 136-145 mmol/L Potassium Level 4.0 3.7 3.5-5.1 mmol/L Chloride Level 100 108 98-107 mmol/L Carbon Dioxide Level 23 22 21-32 mmol/L Anion Gap 11.0 10.0 3-11 mmol/L Blood Urea Nitrogen 27 22 7-18 mg/dl Creatinine 2.10 1.60 0.60-1.40 mg/dl Est Creatinine Clear Calc Drug Dose 46.0 60.8 ml/min Estimated GFR () 39.6 55.0 Estimated GFR (Non- 34.2 47.5 BUN/Creatinine Ratio 12.6 13.7 10-20 Random Glucose 183 173 70-99 mg/dl Calcium Level 8.8 7.7 8.5-10.1 mg/dl Magnesium Level 1.1 1.4 1.8-2.4 mg/dl Total Bilirubin 0.3 0.2-1 mg/dl Direct Bilirubin < 0.1 0-0.2 mg/dl Aspartate Amino Transf (AST/SGOT) 8 15-37 U/L Alanine Aminotransferase (ALT/SGPT) 26 12-78 U/L Alkaline Phosphatase 119 45-117 U/L Total Creatine Kinase 173 39-308 U/L Creatine Kinase MB 0.9 0.5-3.6 ng/ml Creatine Kinase MB Ratio 0.5 0-3.0 Troponin I < 0.015 0-0.045 ng/ml Pro-B-Type Natriuretic Peptide 22 0-900 pg/ml Total Protein 7.7 6.4-8.2 gm/dl Albumin 3.4 3.4-5.0 gm/dl Lipase 144 73-393 U/L Thyroid Stimulating Hormone (TSH) 2.990 0.300-4.500 uIu/ml Bedside Lactic Acid Venous 2.32 0.90-1.70 mmol/L Urine Color DK YELLOW Urine Appearance CLOUDY CLEAR Urine pH 5.0 4.5-7.5 Urine Specific [place] 1.027 1.000-1.030 Urine Protein 2+ NEG Urine Glucose (UA) NEG NEG Urine Ketones 1+ NEG Urine Occult Blood NEG NEG Urine Nitrite POS NEG Urine Bilirubin NEG NEG Urine Urobilinogen NEG NEG Urine Leukocyte Esterase TRACE NEG Urine WBC (Auto) 1-5 0-5 /hpf Urine RBC (Auto) 0-4 0-4 /hpf Urine Hyaline Casts (Auto) >30 0-5 /lpf Urine Epithelial Cells (Auto) >30 0-5 /lpf Urine Bacteria (Auto) 1+ NEG Urine Renal Epithelial Cells 0-5 /lpf Urine Pathogenic Casts 0 /lpf Lactic Acid Level 1.6 0.4-2.0 mmol/L Test 4/6/17 05:39 02/20/17 06:43 02/20/17 11:47 Range/Units White Blood Count 12.41 4.8-10.8 K/uL Red Blood Count 3.89 4.7-6.1 M/uL Hemoglobin 10.1 14.0-18.0 g/dL Hematocrit 30.0 42-52 % Mean Corpuscular Volume 77.1 80-100 fL Mean Corpuscular Hemoglobin 26.0 25-34 pg Mean Corpuscular Hemoglobin Concent 33.7 32-36 g/dl RDW Standard Deviation 44.2 36.4-46.3 fL RDW Coefficient of Variation 15.7 11.5-14.5 % Platelet Count 397 130-400 K/uL Mean Platelet Volume 8.7 7.4-10.4 fL Sodium Level 138 136-145 mmol/L Potassium Level 4.0 3.5-5.1 mmol/L Chloride Level 105 98-107 mmol/L Carbon Dioxide Level 24 21-32 mmol/L Anion Gap 9.0 3-11 mmol/L Blood Urea Nitrogen 20 7-18 mg/dl Creatinine 1.40 0.60-1.40 mg/dl Est Creatinine Clear Calc Drug Dose 69.5 ml/min Estimated GFR () 64.6 Estimated GFR (Non- 55.8 BUN/Creatinine Ratio 14.4 10-20 Random Glucose 183 70-99 mg/dl Estimated Average Glucose 235 mg/dl Hemoglobin A1c 9.8 4.5-5.6 % Lactic Acid Level 1.5 0.4-2.0 mmol/L Calcium Level 8.0 8.5-10.1 mg/dl Magnesium Level 2.1 1.8-2.4 mg/dl Hepatitis C Antibody Screen NEG NEG Bedside Glucose 176 139 70-99 mg/dl Microbiology Results 02/19/17 Blood Culture, Received Pending 02/19/17 Blood Culture, Received Pending 02/19/17 MRSA DNA Surveillance Screen - Final, Complete Specimen Negative for MRSA by DNA Probe 02/19/17 Urine Culture, Received Pending
[2017-02-20] MEDS: ACETAMINOPHEN 325 MG TAB PO PRN (16:56)
[2017-02-20] MEDS ORDERED: DAPTOmycin IV 625 MG in SODIUM CHLORIDE 0.9% 50ML 50 ML IV SCH (23:00)
[2017-02-21] VITALS (8 sets, daily range): BP systolic 106–152; BP diastolic 65–83; PULSE 76–89; TEMP 36.5–36.6; O2SAT 93–98
[2017-02-21] MEDS: SODIUM CHLORIDE 0.9% 1000ML 1,000 ML IV SCH ×2 (00:18→07:45)
[2017-02-21] MEDS: ACETAMINOPHEN 325 MG TAB PO PRN (00:24)
[2017-02-21] MEDS: PIPERACILL/TAZOBAC IV 4.5 GM in DEXTROSE 5% 100ML 100 ML IV SCH (04:22)
[2017-02-21 06:18] LABS: HEMATOCRIT 30.6 % (42-52); MEAN CELL VOLUME 76.3 fL (80-100); MEAN CORPUSCULAR HEMOGLOBIN 25.9 pg (25-34); MEAN PLATELET VOLUME 8.4 fL (7.4-10.4); PLATELET COUNT 412 K/uL (130-400); RED BLOOD COUNT 4.01 M/uL (4.7-6.1); WHITE BLOOD COUNT 8.11 K/uL (4.8-10.8)
[2017-02-21] MEDS: HEPARIN SOD 5000 UNIT/0.5 ML CARP SQ SCH ×2 (06:48→13:55)
[2017-02-21 06:58] LABS: BUN/CREATININE RATIO 9.1 (10-20); CALCIUM 8.7 mg/dl (8.5-10.1); CREATININE 0.99 mg/dl (0.60-1.40); MAGNESIUM 1.5 mg/dl (1.8-2.4); POTASSIUM 4.3 mmol/L (3.5-5.1)
[2017-02-21] MEDS: CALCIUM 600MG + VIT D 400 IU TAB PO SCH (07:44)
[2017-02-21] MEDS: ALLOPURINOL 100 MG TAB PO SCH (07:45)
[2017-02-21] MEDS: PANTOprazole SOD 40 MG TAB PO SCH (07:45)
[2017-02-21] MEDS: INSULIN HUMAN REGULAR SC SCH ×2 (07:49→12:14)
[2017-02-21] MEDS ORDERED: MAGNESIUM SULFATE 1GM / D5W 1 GM in PREMIXED IN D5W 100 ML IV STA (09:04)
[2017-02-21] MEDS ORDERED: CIPROFLOXACIN 500 MG TAB PO STA (11:51)
--- NOTE | 2017-02-21 11:55 | Infectious Disease Progress Nt ---
Progress Note Date of Service Feb 21, 2017. Subjective Pt evaluation today including: conversation w/ patient, physical exam, chart review, lab review, review of studies, conversation w/ immigration consultant (Dr. Moraes), review of inpatient medication list Patient is feeling much better today. Urine culture and blood cultures are showing no growth. WBC count down to 8.11. He is tolerating his abx well. No pain or dizziness. All Other Systems: Reviewed and Negative Medications Current Inpatient Medications Medications (Trade) Dose Ordered Sig/Rodolfo Route Start Time Stop Time Status Last Admin Dose Admin Sodium Chloride (Nss 1000ml) 1,000 ml @ 150 mls/hr Q6H40M IV 02/19/17 23:59 03/22/17 23:58 02/21/17 07:45 150 MLS/HR Allopurinol (Zyloprim Tab) 100 mg DAILY PO 02/20/17 09:00 03/22/17 08:59 02/21/17 07:45 100 MG Calcium/Vitamin D (Caltrate Plus Tab) 1 tab BID PO 02/20/17 09:00 03/22/17 08:59 02/21/17 07:44 1 TAB Miscellaneous Information (Order Awaiting Action) 1 ea QS N/A 02/20/17 08:00 03/22/17 07:59 Pantoprazole Sodium (Protonix Tab) 40 mg DAILY PO 02/20/17 09:00 03/22/17 08:59 02/21/17 07:45 40 MG Acetaminophen (Tylenol Tab) 650 mg Q4H PRN PO 02/19/17 23:00 03/21/17 22:59 02/21/17 00:24 650 MG Al Hydrox/Mg Hydrox/Simethicone (Maalox Max Susp) 15 ml Q4H PRN PO 02/19/17 23:00 03/21/17 22:59 Magnesium Hydroxide (Milk Of Magnesia Susp) 30 ml Q12H PRN PO 02/19/17 23:00 03/21/17 22:59 Zolpidem Tartrate (Ambien Tab) 5 mg HSZ PRN PO 02/19/17 23:00 03/21/17 22:59 Ondansetron HCl (Zofran Inj) 4 mg Q6H PRN IV 02/19/17 23:00 03/21/17 22:59 Polyethylene (Miralax Powder Packet) 17 gm DAILY PRN PO 02/19/17 23:00 03/21/17 22:59 Insulin Human Regular (novoLIN-R) SLIDING SCALE IF C... ACHS SC 02/20/17 07:00 03/22/17 06:59 02/21/17 07:49 3 UNITS Glucose (Glucose 40% Gel) 15-30 GRAMS 15 GRAMS... UD PRN PO 02/19/17 23:00 03/21/17 22:59 Glucose (Glucose Chew Tab) 4-8 Tablets 4 Tabl... UD PRN PO 02/19/17 23:00 03/21/17 22:59 Dextrose (Dextrose 50% 50ML Syringe) 25-50ML OF 50% DW IV FOR... UD PRN IV 02/19/17 23:00 03/21/17 22:59 Glucagon (Glucagon Inj) 1 mg UD PRN SQ 02/19/17 23:00 03/21/17 22:59 Heparin Sodium (Porcine) (Heparin Sq 5000 Unit/0.5ml) 5,000 unit Q8 SQ 02/20/17 07:00 03/22/17 06:59 02/21/17 06:48 5,000 UNIT Objective Vital Signs Date Time Temp Pulse Resp B/P Pulse Ox O2 Delivery O2 Flow Rate FiO2 02/21/17 11:33 36.6 76 20 152/73 93 Nasal Cannula 2.0 02/21/17 08:00 98 Room Air 02/21/17 07:00 36.5 82 16 134/83 98 Room Air 02/21/17 04:00 98 Room Air 02/21/17 02:48 36.6 89 18 106/65 98 Room Air 02/21/17 00:01 96 Room Air 02/20/17 23:50 37.0 90 18 113/71 96 Room Air 02/20/17 20:00 97 Room Air 02/20/17 19:28 36.9 92 18 124/78 97 Room Air 0.0 02/20/17 16:00 97 Room Air 02/20/17 15:35 36.9 97 18 125/77 96 Room Air 02/20/17 12:00 97 Room Air Physical Exam General Appearance: WD/WN, no apparent distress Eyes: normal inspection, sclerae normal ENT: hearing grossly normal Neck: supple, trachea midline Respiratory/Chest: no respiratory distress, no accessory muscle use Cardiovascular: regular rate, rhythm Extremities: normal range of motion Neurologic/Psychiatric: alert, normal mood/affect Skin: normal color, warm/dry, no rash Laboratory Results Item Value Date Time MRSA DNA Surveillance Screen - Final Complete 02/19/17 2343 Nasal Specimen Negative for MRSA by DNA Probe Urine Culture - Preliminary Resulted 02/19/17 2110 Urine , Clean Catch NO GROWTH - LESS THAN 1,000 COLONIES/... Blood Culture - Preliminary Resulted 02/19/17 2100 Blood NO GROWTH TO DATE. Blood Culture - Preliminary Resulted 02/19/17 2041 Blood NO GROWTH TO DATE. Last 24 Hours Test 02/20/17 16:16 02/20/17 20:08 02/21/17 05:46 02/21/17 06:33 Bedside Glucose 161 mg/dl 108 mg/dl 142 mg/dl White Blood Count 8.11 K/uL Red Blood Count 4.01 M/uL Hemoglobin 10.4 g/dL Hematocrit 30.6 % Mean Corpuscular Volume 76.3 fL Mean Corpuscular Hemoglobin 25.9 pg Mean Corpuscular Hemoglobin Concent 34.0 g/dl RDW Standard Deviation 43.2 fL RDW Coefficient of Variation 15.4 % Platelet Count 412 K/uL Mean Platelet Volume 8.4 fL Sodium Level 140 mmol/L Potassium Level 4.3 mmol/L Chloride Level 109 mmol/L Carbon Dioxide Level 24 mmol/L Anion Gap 7.0 mmol/L Blood Urea Nitrogen 9 mg/dl Creatinine 0.99 mg/dl Est Creatinine Clear Calc Drug Dose 97.9 ml/min Estimated GFR () 98.3 Estimated GFR (Non- 84.8 BUN/Creatinine Ratio 9.1 Random Glucose 147 mg/dl Calcium Level 8.7 mg/dl Magnesium Level 1.5 mg/dl Test 02/21/17 10:37 Bedside Glucose 166 mg/dl Assessment and Plan Patient with lightheadedness, dizziness, lactic acidosis and leukocytosis on admission. Urinalysis showed positive nitrite and trace leukocyte esterase but no WBC's. Blood and urine cultures are showing no growth. Patient is on IV Daptomycin and Zosyn. Despite negative cultures, very slight concern for early UTI. Will D/C IV therapy and continue on PO Cipro to complete 5 more days. Discussed this with Dr. Moraes. Patient OK for D/C from ID perspective. PROVIDER ADDENDUM: Pt. reviewed with Ms. Delaney. Agree with above assessment.
[2017-02-21] MEDS ORDERED: NURSING VERBAL MED ORDER ONE (12:00)
--- NOTE | 2017-02-21 13:30 | Progress Note ---
Internal Med Progress Note Date of Service: Feb 21, 2017. Provider Documentation: SUBJECTIVE: The patient was seen and examined Fels a lot better No more dizziness,No fever,chills Remains stable Ready to be discharged OBJECTIVE: Vital Signs-as noted below Exam: General-no scute distress Eyes-normal ENT-normal Neck-supple Lungs-Clear to auscultate bilaterally Heart-Regular,no murmur appreciated Abdomen-Benign,no masses,bowel sound present Extremities-No edema Neuro-AAOx3 Lab data as noted below. ASSESSMENT & PLAN: SEPSIS : Likely secondary to UTI but Culture -negative -met criteria for sepsis -presented with tachycardia /hypotension /leukocytosis WBC 15 K /evidence of hypoperfusion lactic acid elevated > 2 -started on Zosyn /Daptomycin as per sepsis protocol -MRSA -screen -negative -blood and urine culture ordered in ED follow report -ID consult requested-appreciate input -clinically much better today HYPOTENSION:TACHYCARDIA: Secondary to Sepsis Got IV fluid boluses BP is improved Hold antihypertensives -Lisinopril Resolved and will restart Lisinopril ACUTE KIDNEY INJURY : Secondary to dehydration ,sepsis Cont IV fluids Hold ACEI Renal Function is improving Resolved Electrolytes Imbalance Supplement : Recheck -corrected HTN : Presented with Hypotension due to sepsis /dehydration ACEI on hold di to low BP and ARF Will restart when needed TYPE 2 DM hold Metformin/glyburide -acute illness /CANDACE insulin SSI ordered for Hb A1c in AM lab--9.8 FULL CODE DVT PROPHYLAXIS : sub q heparin DISPOSITION : return to [facility] today Vital Signs: Date Time Temp Pulse Resp B/P Pulse Ox O2 Delivery O2 Flow Rate FiO2 02/21/17 12:00 98 Room Air 02/21/17 11:33 36.6 76 20 152/73 93 Nasal Cannula 2.0 02/21/17 08:00 98 Room Air 02/21/17 07:00 36.5 82 16 134/83 98 Room Air 02/21/17 04:00 98 Room Air 02/21/17 02:48 36.6 89 18 106/65 98 Room Air 02/21/17 00:01 96 Room Air 02/20/17 23:50 37.0 90 18 113/71 96 Room Air 02/20/17 20:00 97 Room Air 02/20/17 19:28 36.9 92 18 124/78 97 Room Air 0.0 02/20/17 16:00 97 Room Air 02/20/17 15:35 36.9 97 18 125/77 96 Room Air Lab Results: Results Past 24 Hours Test 02/20/17 16:16 02/20/17 20:08 02/21/17 05:46 02/21/17 06:33 Range/Units Bedside Glucose 161 108 142 70-99 mg/dl White Blood Count 8.11 4.8-10.8 K/uL Red Blood Count 4.01 4.7-6.1 M/uL Hemoglobin 10.4 14.0-18.0 g/dL Hematocrit 30.6 42-52 % Mean Corpuscular Volume 76.3 80-100 fL Mean Corpuscular Hemoglobin 25.9 25-34 pg Mean Corpuscular Hemoglobin Concent 34.0 32-36 g/dl RDW Standard Deviation 43.2 36.4-46.3 fL RDW Coefficient of Variation 15.4 11.5-14.5 % Platelet Count 412 130-400 K/uL Mean Platelet Volume 8.4 7.4-10.4 fL Sodium Level 140 136-145 mmol/L Potassium Level 4.3 3.5-5.1 mmol/L Chloride Level 109 98-107 mmol/L Carbon Dioxide Level 24 21-32 mmol/L Anion Gap 7.0 3-11 mmol/L Blood Urea Nitrogen 9 7-18 mg/dl Creatinine 0.99 0.60-1.40 mg/dl Est Creatinine Clear Calc Drug Dose 97.9 ml/min Estimated GFR () 98.3 Estimated GFR (Non- 84.8 BUN/Creatinine Ratio 9.1 10-20 Random Glucose 147 70-99 mg/dl Calcium Level 8.7 8.5-10.1 mg/dl Magnesium Level 1.5 1.8-2.4 mg/dl Test 02/21/17 10:37 Range/Units Bedside Glucose 166 70-99 mg/dl
[2017-02-21] MEDS ORDERED: CPR500 PO (13:31)
[2017-02-21] MEDS ORDERED: LCTX PO (13:31)
--- NOTE | 2017-02-21 13:33 | Discharge Instructions ---
Discharge Instructions Date of Service Feb 21, 2017. Admission Reason for Admission: Sepsis Discharge Discharge Diagnosis / Problem: Sepsis-resolved,Clinically secondary to UTI Discharge Goals Goal(s): Prevent Disease Progression Activity Recommendations Activity Limitations: resume your previous activity . Instructions / Follow-Up Instructions / Follow-Up [facility] Current Hospital Diet Patient's current hospital diet: AHA Diet (Heart Healthy), Diabetes Type 2 Diet Discharge Diet Recommended Diet: AHA Diet (Heart Healthy), Diabetes Type 2 Diet Pending Studies Studies pending at discharge: no Laboratory Results Hemoglobin A1c Test 02/20/17 05:39 Range/Units Estimated Average Glucose 235 mg/dl Hemoglobin A1c 9.8 H 4.5-5.6 % Medical Emergencies . Who to Call and When: Medical Emergencies: If at any time you feel your situation is an emergency, please call 911 immediately. . Non-Emergent Contact Non-Emergency issues call your: Primary Care Provider . Past History Medical & Surgical History: (1) Sepsis (2) UTI (urinary tract infection) (3) Hypotension (4) Diabetes (5) Hypertension (6) S/P colon resection . "Provider Documentation" section prepared by Vaughn Moraes. VTE Core Measure Inpt VTE Proph given/why not?: Sb Pope, SCD's
[2017-02-21] MEDS ORDERED: CIPROFLOXACIN 500 MG TAB PO SCH (21:00)
--- NOTE | 2017-02-22 08:25 | Discharge Summary ---
Discharge Summary Date of Service Feb 22, 2017. Discharge Summary Admission Date: Feb 19, 2017 at 22:56 Discharge Date: Feb 21, 2017 Discharge Disposition: Home ([facility]ANCO) Principal Diagnosis: Sepsis-resolved,Clinically secondary to UTI Secondary Diagnoses/Problems: Please see H&P and Hospital Progress note Consultations: ID Medication Reconciliation New Medications: Lactobacillus Acidophilus (Lactinex) Tab 2 TAB PO BID, #20 TAB Ciprofloxacin (Ciprofloxacin HCl) 500 Mg Tab 500 MG PO BID for 5 Days, #10 TAB Continued Medications: Allopurinol (Zyloprim) 100 Mg Tab 100 MG PO DAILY, TAB Calcium Carbonate-Vitamin D (Oyst-Edin D) 1 Tab Tab 1 TAB PO BID Ferrous Fumarate W/ Fa-Dss-B C (Nephron Fa) 1 Tab Tab 1 TAB PO DAILY Glyburide (Micronase) 5 Mg Tab 5 MG PO DAILY, TAB Lisinopril (Zestril) 20 Mg Tab 20 MG PO DAILY, TAB Metformin Hcl (Glucophage) 500 Mg Tab 500 MG PO BID, TAB Omeprazole (Prilosec) 20 Mg Capcr 20 MG PO DAILY, CAP Admission Information HPI (per Admitting provider): 56 yo M a prisoner at [facility] -with past medical hx of Type 2 DM . HTN presented to ED with symptom of dizzy spell and lightheadedness in the ED -he was found to be hypotensive BP 92/59 ; tachycardic HR 128 , WBC 15 K , lactic acid level 2.1 , CANDACE with cr 2.2 ( baseline unknown -as per pt no known kidney disease ) pt denies of any symptom of fever or chills, no cough symptom , no abdominal discomfort, no diarrhea felt tired and weak with poor appetite past few days -otherwise not change form normal Cxray shows no cardiopulmonary disease UA positive for nitrite , leukocyte esterase pt denies of any urinary symptoms -no dysuria , has nocturia , and urinary frequency -mentions that has been chronic pt's BP improved after IV fluid bolus in ED , dizzy spell has improved no complain of chest pain or SOB , no orthopnea ,no weakness or paresthesia , no visual symptoms will be admitted to [facility] for Sepsis -possible source of infection -UTI Past Medical/Surgical History Medical Problems: (1) Diabetes Status: Chronic (2) Diverticulitis large intestine Status: Resolved (3) Hypertension Status: Chronic Surgical Problems: (1) History of colostomy reversal Status: Resolved (2) S/P colon resection Status: Resolved Social History Smoking Status: Never Smoker Allergies Coded Allergies: No Known Allergies (Unverified , 02/19/17) Home Medications Scheduled Allopurinol (Zyloprim), 100 MG PO DAILY Calcium Carbonate-Vitamin D (Oyst-Edin D), 1 TAB PO BID Ferrous Fumarate W/ Fa-Dss-B C (Nephron Fa), 1 TAB PO DAILY Glyburide (Micronase), 5 MG PO DAILY Lisinopril (Zestril), 20 MG PO DAILY Metformin Hcl (Glucophage), 500 MG PO BID Omeprazole (Prilosec), 20 MG PO DAILY Review of Systems Constitutional: + fatigue, + weakness Respiratory: No cough, No dyspnea at rest, No dyspnea on exertion, No hemoptysis, No problem reported, No shortness of breath, No sputum, No wheezing Cardiovascular: No PND, No chest pain, No claudication, No edema, No orthopnea , No palpitations, No problem reported Abdomen: No GI bleeding, No constipation, No diarrhea, No nausea, No pain, No problem reported, No vomiting Genitourinary - Male: + urinary frequency Endocrine: + fatigue Physical Ex - H&P Physical Exam Vital Signs Date Time Temp Pulse Resp B/P Pulse Ox O2 Delivery O2 Flow Rate FiO2 02/19/17 21:12 97 Room Air 02/19/17 21:05 115 18 119/62 95 Room Air 02/19/17 20:35 119 02/19/17 19:39 36.9 128 20 92/59 98 Room Air General Appearance: no apparent distress Head: normocephalic, atraumatic Eyes: normal inspection Neck: supple, no adenopathy, thyroid normal, no JVD, no carotid bruits, trachea midline Respiratory/Chest: chest non-tender, lungs clear, normal breath sounds, no respiratory distress, no accessory muscle use Cardiovascular: regular rate, rhythm, + tachycardia Abdomen/GI: normal bowel sounds, non tender, soft Extremities/Musculoskelatal: normal capillary refill, no pedal edema Neurologic/Psych: alert, normal mood/affect, oriented x 3 Skin: no rash Lymphatic: no adenopathy Diagnostics - H&P Diagnostics Laboratory Results Results Past 24 Hours Test 02/19/17 21:00 02/19/17 21:08 02/19/17 21:10 Range/Units White Blood Count 15.95 4.8-10.8 K/uL Red Blood Count 4.19 4.7-6.1 M/uL Hemoglobin 11.1 14.0-18.0 g/dL Hematocrit 32.3 42-52 % Mean Corpuscular Volume 77.1 80-100 fL Mean Corpuscular Hemoglobin 26.5 25-34 pg Mean Corpuscular Hemoglobin Concent 34.4 32-36 g/dl Platelet Count 461 130-400 K/uL Mean Platelet Volume 8.6 7.4-10.4 fL Neutrophils (%) (Auto) 66.3 % Lymphocytes (%) (Auto) 26.4 % Monocytes (%) (Auto) 5.1 % Eosinophils (%) (Auto) 1.5 % Basophils (%) (Auto) 0.3 % Neutrophils # (Auto) 10.59 1.4-6.5 K/uL Lymphocytes # (Auto) 4.21 1.2-3.4 K/uL Monocytes # (Auto) 0.81 0.11-0.59 K/uL Eosinophils # (Auto) 0.24 0-0.5 K/uL Basophils # (Auto) 0.04 0-0.2 K/uL RDW Standard Deviation 43.3 36.4-46.3 fL RDW Coefficient of Variation 15.3 11.5-14.5 % Immature Granulocyte % (Auto) 0.4 % Immature Granulocyte # (Auto) 0.06 0.00-0.02 K/uL Prothrombin Time 10.6 9.0-12.0 SECONDS Prothromb Time International Ratio 1.0 0.9-1.1 Activated Partial Thromboplast Time 32.0 21.0-31.0 SECONDS Partial Thromboplastin Ratio 1.2 Sodium Level 134 136-145 mmol/L Potassium Level 4.0 3.5-5.1 mmol/L Chloride Level 100 98-107 mmol/L Carbon Dioxide Level 23 21-32 mmol/L Anion Gap 11.0 3-11 mmol/L Blood Urea Nitrogen 27 7-18 mg/dl Creatinine 2.10 0.60-1.40 mg/dl Est Creatinine Clear Calc Drug Dose 46.0 ml/min Estimated GFR () 39.6 Estimated GFR (Non- 34.2 BUN/Creatinine Ratio 12.6 10-20 Random Glucose 183 70-99 mg/dl Calcium Level 8.8 8.5-10.1 mg/dl Magnesium Level 1.1 1.8-2.4 mg/dl Total Bilirubin 0.3 0.2-1 mg/dl Direct Bilirubin < 0.1 0-0.2 mg/dl Aspartate Amino Transf (AST/SGOT) 8 15-37 U/L Alanine Aminotransferase (ALT/SGPT) 26 12-78 U/L Alkaline Phosphatase 119 45-117 U/L Total Creatine Kinase 173 39-308 U/L Creatine Kinase MB 0.9 0.5-3.6 ng/ml Creatine Kinase MB Ratio 0.5 0-3.0 Troponin I < 0.015 0-0.045 ng/ml Pro-B-Type Natriuretic Peptide 22 0-900 pg/ml Total Protein 7.7 6.4-8.2 gm/dl Albumin 3.4 3.4-5.0 gm/dl Lipase 144 73-393 U/L Thyroid Stimulating Hormone (TSH) 2.990 0.300-4.500 uIu/ml Bedside Lactic Acid Venous 2.32 0.90-1.70 mmol/L Urine Color DK YELLOW Urine Appearance CLOUDY CLEAR Urine pH 5.0 4.5-7.5 Urine Specific [place] 1.027 1.000-1.030 Urine Protein 2+ NEG Urine Glucose (UA) NEG NEG Urine Ketones 1+ NEG Urine Occult Blood NEG NEG Urine Nitrite POS NEG Urine Bilirubin NEG NEG Urine Urobilinogen NEG NEG Urine Leukocyte Esterase TRACE NEG Urine WBC (Auto) 1-5 0-5 /hpf Urine RBC (Auto) 0-4 0-4 /hpf Urine Hyaline Casts (Auto) >30 0-5 /lpf Urine Epithelial Cells (Auto) >30 0-5 /lpf Urine Bacteria (Auto) 1+ NEG Urine Renal Epithelial Cells 0-5 /lpf Urine Pathogenic Casts 0 /lpf Microbiology Results 02/19/17 Blood Culture, Received Pending 02/19/17 Blood Culture, Received Pending 02/19/17 Urine Culture, Received Pending CXR normal Impression - H&P Impression Assessment and Plan SEPSIS : meets criteria for sepsis -presented with tachycardia /hypotension / leukocytosis WBC 15 K /evidence of hypoperfusion lactic acid elevated > 2 possible source of infection -UTI started on Zosyn /Daptomycin as per sepsis protocol MRSA -screen ordered Daptomycin can be discontinued if MRSA screen negative blood and urine culture ordered in ED follow report ID consult requested HYPOTENSION: due to above given 2 L IV fluid bolus in ED BP improved 114 with adequate urination pt will be continued with IV fluid resuscitation repeat lactic acid ordered to assess adequate perfusion /correction of vol deficit hold antihypertensives -Lisinopril ordered for orthostatic vital monitor in tele TACHYCARDIA: reflex sinus tachycardia due to vol depletion /dehydration /sepsis cont vol resuscitation , Abx treatment for infection /sepsis monitor in Telel ACUTE KIDNEY INJURY : due to poor PO intake , dehydration ,sepsis cont IV fluids hold ACEI cont to follow PRP Nephrology eval requested HYPONATREMIA ; due to dehydration IVF with NSS monitor lytes LOW MG : corrected cont to follow lytes HTN : presented with Hypotension due to sepsis /dehydration ACEI on hold cont to monitor TYPE 2 DM hold Metformin/glyburide -acute illness /CANDACE insulin SSI ordered for Hb A1c in AM lab FULL CODE DVT PROPHYLAXIS : sub q heparin DISPOSITION : return to [facility] when medically stable Level of Care Telemetry Resuscitation Status FULL RESUSCITATION VTE Prophylaxis VTE Risk Assessment Done? Y/N: Yes Risk Level: Low Given or contraindicated: T.E.D. Stockings, SCD's Note In my clinical judgment this beneficiary meets acute admission criteria, established by [facility], that includes being hospitalized through two midnights. Physical Exam (per Admitting): General Appearance: no apparent distress Head: normocephalic, atraumatic Eyes: normal inspection Neck: supple, no adenopathy, thyroid normal, no JVD, no carotid bruits, trachea midline Respiratory/Chest: chest non-tender, lungs clear, normal breath sounds, no respiratory distress, no accessory muscle use Cardiovascular: regular rate, rhythm, + tachycardia Abdomen/GI: normal bowel sounds, non tender, soft Extremities/Musculoskelatal: normal capillary refill, no pedal edema Neurologic/Psych: alert, normal mood/affect, oriented x 3 Skin: no rash Lymphatic: no adenopathy Hospital Course SEPSIS : Likely secondary to UTI but Culture -negative -met criteria for sepsis -presented with tachycardia /hypotension /leukocytosis WBC 15 K /evidence of hypoperfusion lactic acid elevated > 2 -started on Zosyn /Daptomycin as per sepsis protocol -MRSA -screen -negative -blood and urine culture ordered in ED follow report -ID consult requested-appreciate input -clinically much better today HYPOTENSION:TACHYCARDIA: Secondary to Sepsis Got IV fluid boluses BP is improved Hold antihypertensives -Lisinopril Resolved and will restart Lisinopril ACUTE KIDNEY INJURY : Secondary to dehydration ,sepsis Cont IV fluids Hold ACEI Renal Function is improving Resolved Electrolytes Imbalance Supplement : Recheck -corrected HTN : Presented with Hypotension due to sepsis /dehydration ACEI on hold di to low BP and ARF Will restart when needed TYPE 2 DM hold Metformin/glyburide -acute illness /CANDACE insulin SSI ordered for Hb A1c in AM lab--9.8 FULL CODE DVT PROPHYLAXIS : sub q heparin DISPOSITION : return to [facility] today Total time spent on discharge = 35 minutes This includes examination of the patient, discharge planning, medication reconciliation, and communication with other providers. Discharge Instructions Date of Service Feb 21, 2017. Admission Reason for Admission: Sepsis Discharge Discharge Diagnosis / Problem: Sepsis-resolved,Clinically secondary to UTI Discharge Goals Goal(s): Prevent Disease Progression Activity Recommendations Activity Limitations: resume your previous activity . Instructions / Follow-Up Instructions / Follow-Up [facility] Current Hospital Diet Patient's current hospital diet: AHA Diet (Heart Healthy), Diabetes Type 2 Diet Discharge Diet Recommended Diet: AHA Diet (Heart Healthy), Diabetes Type 2 Diet Pending Studies Studies pending at discharge: no Laboratory Results Hemoglobin A1c Test 02/20/17 05:39 Range/Units Estimated Average Glucose 235 mg/dl Hemoglobin A1c 9.8 H 4.5-5.6 % Medical Emergencies . Who to Call and When: Medical Emergencies: If at any time you feel your situation is an emergency, please call 911 immediately. . Non-Emergent Contact Non-Emergency issues call your: Primary Care Provider . Past History Medical & Surgical History: (1) Sepsis (2) UTI (urinary tract infection) (3) Hypotension (4) Diabetes (5) Hypertension (6) S/P colon resection . "Provider Documentation" section prepared by Vaughn Moraes. VTE Core Measure Inpt VTE Proph given/why not?: Sb Pope, JANAE's <Electronically signed by Vaughn Moraes M.D.> [facility]
== END 2017-02-21 15:24 | DRG 872 ==
LOC: ENRESERVTM → ENRESERVDT → C.EDB 19:18 → C.2E 22:56
PROVIDERS: ADMIT Hospitalist; ATTEND Internal Medicine
DX: A41.9 Sepsis, unspecified organism (principal); N39.0 Urinary tract infection, site not specified; N17.9 Acute kidney failure, unspecified; E87.1 Hypo-osmolality and hyponatremia; E83.42 Hypomagnesemia; I10 Essential (primary) hypertension; E11.9 Type 2 diabetes mellitus without complications; Z79.84 Long term (current) use of oral hypoglycemic drugs; Z79.899 Other long term (current) drug therapy